=== PATIENT | male | born 1950 ===

== ENCOUNTER 2018-05-14 06:58 | Day surgery (SDC) | payer OTHER ==
[2018-05-14] MEDS ORDERED: Bupivacaine 0.25% SDV PF* 10 ML VIAL INJ ONE (07:22)
[2018-05-14 09:03] VITALS: BP 158/94
--- NOTE | 2018-05-14 11:55 | OP ---
DATE OF OPERATION: 05/14/18 [facility] DATE OF : 50 SURGEON: Neo Fleming MD. [employer] PUSHER: JCARLOS Wick. ANESTHESIOLOGIST: None. ANESTHESIA: Local with 0.25% Marcaine. PRE-OP DIAGNOSIS: Right middle trigger finger. POST-OP DIAGNOSIS: Right middle trigger finger. OPERATIVE PROCEDURE: Right middle trigger finger release. INDICATIONS: Shahriar has a chronic trigger finger. We had talked about risks and benefits. He wanted to proceed with surgery. ESTIMATED BLOOD LOSS: 2 mL. COMPLICATIONS: None. FINDINGS: See above and below. DESCRIPTION OF PROCEDURE: Shahriar was seen in the preoperative holding area. The correct site, side, and procedure were identified. We came back to the operating room where the arm was prepped and draped in the usual fashion. Time- out was performed. I had already anesthetized the operative area with 0.25% Marcaine. I began by making an incision utilizing the distal palmar crease. Dissection was carried down and full-thickness flaps were raised off the tendon sheath. There was a large amount of tenosynovitis protruding from underneath the A1 melvin. All this tenosynovitis was excised. I was then able to longitudinally incise the A1 melvin along the radial third. Once I had completed the release with the tenotomy scissors, I had him flex the finger down multiple times. There was no more catching. We irrigated out the wound.. Skin was closed with 4-0 nylon suture. The wounds were dressed, and he was taken to the recovery room in stable condition. Tourniquet was used at 225 mmHg throughout the case. [id number]/[facility] #: [id number] [facility]
== END 2018-05-14 09:13 | disposition home or self-care (01) ==
LOC: OREAST 06:58
PROVIDERS: ATTEND Orthopaedic Surgery Hand Surgery
DX: M65.331 Trigger finger, right middle finger (principal); E78.00 Pure hypercholesterolemia, unspecified
CPT/HCPCS: J3490